=== PATIENT | male | born 1985 | race African-American/Black ===

== ENCOUNTER 2017-07-17 14:38 | Emergency (ER) | payer SELFPAY ==
[~2017-07-17] VITALS: Ht 188 cm; Wt 68.0 kg
[2017-07-17 14:42] VITALS: BP 132/83
== END 2017-07-17 16:15 | disposition home or self-care (01) ==
LOC: ER 14:38
DX: S90.412A Abrasion, left great toe, initial encounter (principal); L08.9 Local infection of the skin and subcutaneous tissue, unspecified; X58.XXXA Exposure to other specified factors, initial encounter; Y93.89 Activity, other specified; Y99.8 Other external cause status; Y92.89 Other specified places as the place of occurrence of the external cause

== ENCOUNTER 2024-11-18 18:39 | Emergency (ER) | payer MEDICAID ==
[~2024-11-18] VITALS: Ht 182.9 cm; Wt 90.2 kg
[2024-11-18 19:06] VITALS: BP 130/88; PULSE 73; RESP 17; TEMP 98.2; O2SAT 99
[2024-11-18] MEDS ORDERED: IBUP-1456 PO (19:42)
[2024-11-18] MEDS ORDERED: AMOX875T4 PO (19:42)
--- NOTE | 2024-11-18 19:42 | ED.PDOC ---
Eye-HPI HPI Comments 39-YEAR-OLD MALE PRESENTS TO ER WITH COMPLAINTS OF TOOTHACHE X1 DAY. PATIENT REPORTS THAT HE HAS BEEN EXPERIENCING LEFT UPPER TOOTHACHE PAIN X1 DAY. HE RATES HIS CURRENT LEFT UPPER TOOTHACHE PAIN A 10/10 WITHOUT RADIATION. DENIES USE OF MEDICATIONS FOR CURRENT SYMPTOMS. PATIENT PRESENTS TO ER AMBULATORY ON ARRIVAL, WITH STEADY GAIT, IN NO DISTRESS. DENIES FEVER, HEADACHE, SKIN CHANGES, INJURY OR ANY FURTHER SYMPTOMS/COMPLAINTS Chief Complaint: Tooth Pain Time Seen by MD: 18:51 Primary Care Provider: UNKNOWN Reviewed Notes: Nurses Notes, Medications, Allergies Allergies: Coded Allergies: NO KNOWN ALLERGIES (Unverified , 06/13/15) Home Meds Active Scripts Ibuprofen (Ibuprofen) 800 Mg Tab, 1 TAB PO TID PRN, #30 TAB 0 Refills Prov:CHRISTINA WATSON 11/18/24 Amoxicillin & Pot Clavulanate (Amoxicillin/Potassium Cla) 875 Mg Tab, 1 TAB PO BID for 7 Days, #14 TAB 0 Refills Prov:CHRISTNIA WATSON 11/18/24 Information Source: Patient Mode of Arrival: Ambulatory Past Medical History PAST MEDICAL HISTORY: Denies Surgical History: Denies all surgeries Family History Family History: Unknown Social History Smoker: Non-Smoker Alcohol: Denies ETOH Use Drugs: Denies Drug Use Lives In: Home Constitutional: denies: chills, diaphoresis, fatigue, fever, malaise, sweats, weakness, others EENTM: reports: others ( STATED IN HPI) Respiratory: denies: cough, hemoptysis, orthopnea, SOB at rest, shortness of breath, SOB with excertion, stridor, wheezing, others Cardiovascular: denies: chest pain, dizzy spells, diaphoresis, Dyspnea on exertion, edema, irregular heart beat, left arm pain, lightheadedness, palpitati ons, PND, syncope, others Gastrointestinal: denies: abdomen distended, abdominal pain, blood streaked bowels, constipated, diarrhea, dysphagia, difficulty swallowing, hematemesis, melena, nausea, poor appetite, poor fluid intake, rectal bleeding, rectal pain, vomiting, others Genitourinary: denies: burning, dysuria, flank pain, frequency, hematuria, incontinence, penile discharge, penile sore, pain, testicle pain, testicle swelling, urgency, others Neurological: denies: dizziness, fainting, headache, left sided numbness, left sided weakness, numbness, paresthesia, pre-existing deficit, right sided numbness, right sided weakness, seizure, speech problems, tingling, tremors, weakness, others Musculoskeletal: denies: back pain, gout, joint pain, joint swelling, muscle pain, muscle stiffness, neck pain, others Integumetry: denies: bruises, change in color, change in hair/nails, dryness, laceration, lesions, lumps, rash, wounds, others Allergic/Immunocompromised: denies: Difficulty Healing, Frequent Infections, Hives, Itching, others Hematologic/Lymphatic: denies: anemia, blood clots, easy bleeding, easy bruising, swollen glands, others Endocrine: denies: excessive hunger, excessive sweating, excessive thirst, excessive urination, flushing, intolerance to cold, intolerance to heat, unexplained weight gain, unexplained weight loss, others Psychiatric: denies: anxiety, bipolar disorder, depression, hopeless, panic disorder, schizophrenia, sleepless, suicidal, others Physical Exam General Appearance: No Apparent Distress HEENT: Normal ENT Inspection, PERRL/EOMI, Pharynx Normal, TMs Normal, Other (MILD SWELLING/ERYTHEMA NOTED SURROUNDING TOOTH #24, NO BLEEDING/DRAINAGE NOTED. NO FACIAL SWELLING APPRECIATED) Neck: Full Range of Motion, Non-Tender, Normal Respiratory: Chest Non-Tender, Lungs Clear, No Accessory Muscle Use, No Respiratory Distress, Normal Breath Sounds Cardiovascular: No Murmur, No Gallop, Regular Rate/Rhythm Breast Exam: Deferred Gastrointestinal: NOT DONE Genitalia: Deferred Pelvic: Deferred Rectal: Deferred Extremities: Normal capillary refill, Normal range of motion Neurologic: Alert, employment services director II-XII nml as Tested, No Motor Deficits, Normal Affect, Normal Mood, No Sensory Deficits Cerebellar Function: Normal Reflexes: Normal Skin: Dry, Normal Color, Warm Lymphatic: No Adenopathy Was a procedure done? Was a procedure done?: No Sedation Sedation?: No EENT DIFF Eye: N/A Mouth: Herpes Simplex, Thrush, Other (FRACTURED TOOTH, DENTAL ABSCESS) X-Ray, Labs, Meds, VS Vital Signs Date Time Temp Pulse Resp B/P (MAP) Pulse Ox O2 Delivery O2 Flow Rate FiO2 11/18/24 19:06 98.2 73 17 130/88 (102) 99 98.2 11/18/24 19:06 73 17 99 Room Air 11/18/24 18:49 98.2 73 17 135/88 (104) 99 HURRICANE SPRAY ORDERED, PATIENT EDUCATED ON PROPER USE/DOSAGE ADVISED TO FOLLOW UP WITH PCP AND DENTIST IN 1-2 DAYS PATIENT VERBALIZED UNDERSTANDING AND AGREEABLE WITH CURRENT PLAN OF CARE ADVISED TO RETURN TO ER IMMEDIATELY IF SYMPTOMS WORSEN Time of 1ST Reevaluation: 19:24 Reevaluation 1ST: N/A Patient Education/Counseling: Diagnosis, Treatment, Prognosis, Need For Follow Up Family Education/Counseling: No Family Present Departure 1 Departure Time of Disposition: 19:40 Impression: Primary Impression: Dental infection Disposition: HOME / SELF CARE / HOMELESS Condition: Stable e-Prescriptions Ibuprofen (Ibuprofen) 800 Mg Tab 1 TAB PO TID PRN, #30 TAB 0 Refills Prov: CHRISTINA WATSON 11/18/24 Amoxicillin & Pot Clavulanate (Amoxicillin/Potassium Cla) 875 Mg Tab 1 TAB PO BID for 7 Days, #14 TAB 0 Refills Prov: CHRISTINA WATSON 11/18/24 Critical Care Note Critical Care Time?: No Stability Stability form required: No Heart Score Heart Score: Heart Score Response (Comments) Value History N/A 0 EKG N/A 0 Age N/A 0 Risk Factors N/A 0 Troponin N/A 0 Total 0 CHRISTINA WATSON Nov 18, 2024 19:42
[2024-11-18] MEDS: BENZOCAINE (DENTAL) 20 % SPRAY 60ML MT ONE (19:52)
== END 2024-11-18 19:56 | disposition home or self-care (01) ==
LOC: ER 18:39
DX: K04.7 Periapical abscess without sinus (principal)